=== PATIENT | male | born 1985 | race African-American/Black ===

== ENCOUNTER 2017-06-26 22:07 | Emergency (ER) | payer SELFPAY ==
[~2017-06-26] VITALS: Ht 165.1 cm; Wt 65.8 kg
[2017-06-26 22:07] VITALS: BP 132/89
--- NOTE | 2017-06-26 23:08 | PHYS DOC ---
Adult General Chief Complaint Chief Complaint: HEAD INJURY/TRAUMA HPI HPI Patient is a 32 year old male who presents with head injury. The patient states about 3 hours prior to arrival he was hit in the left side of his head by a glass vase. He denies loss of consciousness at that time, no laceration, no other injuries. He felt dazed & sat down on the stairs, no fall but thinks he may have experienced brief syncopal episode. He denies additional injury at that time, denies tongue biting, incontinence, chest pain, palpitations, shortness of breath, extremity numbness/weakness, vomiting. He denies past medical history or use of blood thinners. Does not have a PCP. Review of Systems Review of Systems Constitutional: Denies fever or chills and reports syncope Eyes: Denies change in visual acuity HENT: Denies nasal congestion or sore throat Respiratory: Denies cough or shortness of breath Cardiovascular: Denies chest pain or edema GI: Denies abdominal pain, nausea, vomiting Musculoskeletal: Denies back pain or joint pain Integument: Denies rash or skin lesions Neurologic: Reports headache, denies focal weakness or sensory changes Current Medications Current Medications Current Medications Medications (Trade) Dose Ordered Sig/[place] Start Time Stop Time Status Last Admin Dose Admin Potassium Chloride (Klor-Con) 40 meq 1X ONCE 06/27/17 00:15 06/27/17 00:16 DC 06/27/17 00:15 40 MEQ Allergies Allergies Allergies Coded Allergies Type Severity Reaction Last Updated Verified No Known Drug Allergies 06/26/17 No Physical Exam Physical Exam Constitutional: Well developed, well nourished, no acute distress, non-toxic appearance. HENT: Normocephalic, left parietal scalp hematoma, bilateral external ears normal, oropharynx moist, nose normal. Eyes: PERRLA, EOMI, conjunctiva normal, no discharge. Neck: supple, no stridor. No midline C-spine tenderness Cardiovascular: RRR, no murmurs, no edema. Lungs & Thorax: LCTAB, no wheezing, no respiratory distress. Abdomen: soft, nontender, nondistended. Skin: Warm, dry, no erythema, no rash. Back: No tenderness. Extremities: No tenderness, no edema. No calf tenderness or swelling Neurologic: Alert and oriented X 3, cranial nerves II through XII grossly intact , symmetric strength and sensation upper and lower extremities, no focal deficits noted. Psychologic: Affect normal, judgement normal, mood normal. Current Patient Data Vital Signs Vital Signs Date Time Temp Pulse Resp B/P (MAP) Pulse Ox O2 Delivery O2 Flow Rate FiO2 06/26/17 22:07 98.1 63 16 132/89 (103) 100 Room Air 98.1 Lab Values Laboratory Tests Test 06/26/17 23:10 White Blood Count 10.6 x10^3/uL (4.0-11.0) Red Blood Count 5.69 x10^6/uL (4.30-5.70) Hemoglobin 15.5 g/dL (13.0-17.5) Hematocrit 45.8 % (39.0-53.0) Mean Corpuscular Volume 81 fL (79-100) Mean Corpuscular Hemoglobin 27 pg (25-35) Mean Corpuscular Hemoglobin Concent 34 g/dL (31-37) Red Cell Distribution Width 12.6 % (11.5-14.5) Platelet Count 239 x10^3/uL (140-400) Neutrophils (%) (Auto) 76 % (31-73) H Lymphocytes (%) (Auto) 19 % (24-48) L Monocytes (%) (Auto) 4 % (0-9) Eosinophils (%) (Auto) 2 % (0-3) Basophils (%) (Auto) 0 % (0-3) Neutrophils # (Auto) 8.0 x10^3uL (1.8-7.7) H Lymphocytes # (Auto) 2.0 x10^3/uL (1.0-4.8) Monocytes # (Auto) 0.4 x10^3/uL (0.0-1.1) Eosinophils # (Auto) 0.2 x10^3/uL (0.0-0.7) Basophils # (Auto) 0.0 x10^3/uL (0.0-0.2) Sodium Level 143 mmol/L (136-145) Potassium Level 3.4 mmol/L (3.5-5.1) L Chloride Level 105 mmol/L (98-107) Carbon Dioxide Level 31 mmol/L (21-32) Anion Gap 7 (6-14) Blood Urea Nitrogen 10 mg/dL (8-26) Creatinine 1.1 mg/dL (0.7-1.3) Estimated GFR (Cockcroft-Gault) 94.5 BUN/Creatinine Ratio 9 (6-20) Glucose Level 88 mg/dL (70-99) Calcium Level 9.6 mg/dL (8.5-10.1) Total Bilirubin 0.6 mg/dL (0.2-1.0) Aspartate Amino Transferase (AST) 18 U/L (15-37) Alanine Aminotransferase (ALT) 15 U/L (16-63) L Alkaline Phosphatase 76 U/L (46-116) Troponin I Quantitative < 0.017 ng/mL (0.000-0.055) FF-Yyh-V-Type Natriuretic Peptide 14 pg/mL (0-124) Total Protein 8.0 g/dL (6.4-8.2) Albumin 4.3 g/dL (3.4-5.0) Albumin/Globulin Ratio 1.2 (1.0-1.7) Laboratory Tests 06/26/17 23:10 Laboratory Tests 06/26/17 23:10 EKG EKG interpreted by me: NSR rate 69, no ST elevation, T waves inverted in leads 3, aVF, V4-V6 without ST depression, normal intervals, no ectopy.[] Radiology/Procedures Radiology/Procedures PROCEDURE: CT HEAD WO CONTRAST INDICATION: HEAD INJURY, HX DENIES, NO PRIORS COMPARISON: None. TECHNIQUE: Axial CT images obtained through the head without intravenous contrast. One or more of the following individualized dose reduction techniques were utilized for this examination: 1. Automated exposure control; 2. Adjustment of the mA and/or kV according to patient size; 3. Use of iterative reconstruction technique. FINDINGS: No intracranial hemorrhage. No midline shift. Basal cisterns patent. Ventricles and sulci are unremarkable. No acute osseous abnormality. Orbits and paranasal sinuses unremarkable. Cavum septum pellucidum. IMPRESSION: 1. No acute intracranial hemorrhage. Electronically signed by: Elton Killian MD (06/26/2017 11:18 PM) [facility] DICTATED and SIGNED BY: ELTON KILLIAN MD DATE: 06/26/17 0280[] Course & Med Decision Making Course & Med Decision Making Pertinent Labs and Imaging studies reviewed. (See chart for details) The patient presents with head injury. 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 He declined pain medication. Obtained CT head, EKG, labs. EKG is abnormal but patient denies any chest pain. He states he was on a "heart monitor" for for the first 3 months of his life. He denies any cardiac history as an adult, no other known past medical history. Troponin was negative. Discussed results with patient, okay to go home tonight as symptoms seem related to his head injury, but would follow up with primary care & cardiology regarding abnormal EKG, given referral to Dr. Rivera & Dr. Velasco & advised to follow up within 1 week. Come back for altered mental status, focal neurologic deficit, severe chest pain or shortness of breath, recurrent syncope, any otherwise worsening condition. Discharged home in stable condition. [] Dragon Disclaimer Dragon Disclaimer This electronic medical record was generated, in whole or in part, using a voice recognition dictation system. Departure Departure Impression: Primary Impression: Head injury Disposition: HOME, SELF-CARE Condition: STABLE Referrals: NO PCP (PCP) JAH VELASCO MD, W R MD Patient Instructions: Head Injury, Adult, [id number] Additional Instructions: You were seen in the emergency department today for head injury. CT scan did not show any serious brain injury. As we discussed, you had an abnormal EKG and low potassium. Please rest, drink fluids, take Tylenol or ibuprofen for headache. Follow-up with Dr. Rivera in the primary care clinic and Dr. Velasco in the cardiology clinic in one week. Return to the emergency department for confusion, abnormal walking or talking, numbness or weakness on one side of your body, uncontrolled vomiting, severe chest pain or palpitations, recurrence of fainting, any otherwise worsening condition. RENEE HYLTON MD Jun 26, 2017 23:08
--- NOTE | 2017-06-26 23:21 | RAD ---
INDICATION: HEAD INJURY, HX DENIES, NO PRIORS COMPARISON: None. TECHNIQUE: Axial CT images obtained through the head without intravenous contrast. One or more of the following individualized dose reduction techniques were utilized for this examination: 1. Automated exposure control; 2. Adjustment of the mA and/or kV according to patient size; 3. Use of iterative reconstruction technique. FINDINGS: No intracranial hemorrhage. No midline shift. Basal cisterns patent. Ventricles and sulci are unremarkable. No acute osseous abnormality. Orbits and paranasal sinuses unremarkable. Cavum septum pellucidum. IMPRESSION: 1. No acute intracranial hemorrhage. Electronically signed by: Hola Jj MD (06/26/2017 11:18 PM) [facility]
[2017-06-26 23:23] LABS: BASO % 0 % (0-3); EOS % 2 % (0-3); HEMATOCRIT 45.8 % (39.0-53.0); HEMOGLOBIN 15.5 g/dL (13.0-17.5); LYMPH % 19 % (24-48); MEAN CORPUSCULAR HEMOGLOBIN 27 pg (25-35); MEAN CORPUSCULAR HGB CONC 34 g/dL (31-37); MEAN CORPUSCULAR VOLUME 81 fL (79-100); MONO % 4 % (0-9); NEUT % 76 % (31-73); PLATELET COUNT 239 x10^3/uL (140-400); RED BLOOD COUNT 5.69 x10^6/uL (4.30-5.70); RED CELL DISTRIBUTION WIDTH 12.6 % (11.5-14.5); WHITE BLOOD COUNT 10.6 x10^3/uL (4.0-11.0)
[2017-06-26 23:34] LABS: CALCIUM 9.6 mg/dL (8.5-10.1); CREATININE 1.1 mg/dL (0.7-1.3); GFR 94.5; POTASSIUM 3.4 mmol/L (3.5-5.1)
[2017-06-26 23:41] LABS: ALBUMIN 4.3 g/dL (3.4-5.0); ALBUMIN/GLOBULIN RATIO 1.2 (1.0-1.7); TOTAL BILIRUBIN 0.6 mg/dL (0.2-1.0)
[2017-06-27] MEDS ORDERED: POTASSIUM CHLORIDE 20 MEQ TABLET.ER. PO ONE (00:15)
--- NOTE | 2017-06-27 07:26 | EKG ---
[facility] [address] [place] [address] Test Date: 2017-06-26 Test Time: 22:21:55 Pat Name: ARIEL OCONNELL Department: Room: Gender: M Cardiology Specialist: : [id number] Requested By: RENEE HYLTON Order Number: [id number] Reading MD: Measurements Intervals [place] Rate: 69 P: 47 [place]: 186 QRS: 74 QRSD: 90 T: 0 QT: 372 QTc: 400 Interpretive Statements SINUS RHYTHM LEFT ATRIAL ABNORMALITY QRS(T) CONTOUR ABNORMALITY CONSIDER INFERIOR MYOCARDIAL DAMAGE T ABNORMALITY IN ANTEROLATERAL LEADS RI6.01 Unconfirmed report No previous ECG available for comparison
== END 2017-06-27 00:24 | disposition home or self-care (01) ==
LOC: ER 22:07
DX: S09.90XA Unspecified injury of head, initial encounter (principal); W22.8XXA Striking against or struck by other objects, initial encounter; Y93.89 Activity, other specified; Y92.89 Other specified places as the place of occurrence of the external cause; Y99.8 Other external cause status
CPT/HCPCS: 36415; 70450; 80053; 83880; 84484; 85025; 93005; 99285-25